=== PATIENT | female | born 1955 | race Caucasian/White ===

== ENCOUNTER 2023-11-07 23:55 | Emergency (ER) | payer MEDICARE, OTHER ==
[~2023-11-07] VITALS: Ht 172.7 cm; Wt 159.1 kg
[~2023-11-07 23:55] MED LIST: ACIPHEX20 MG PO; ANTIVERT 25MG25 MG PO; ATIVAN 1MG T1 MG/TAB PO; BETAPACE 120MG120 MG PO; BETAPACE 80MG80 MG PO; CALCIUM CITRAT200 M2 PO; CARDIZEM CD 12120 MG PO; CARDIZEM CD 18180 MG PO; CORDARONE200 MG/TAB PO; COUMADIN 1010 MG/TAB PO; COUMADIN 5MG5 MG/TAB PO; COUMADIN 77.5 MG/TAB PO; COZAAR 50MG50 MG/TAB PO; DESENEX TP; DOXYCYCLINE 10100 MG PO; ELIQUIS 5MG PO; FLEXERIL 1010 MG/TAB PO; FLONASEALLERGY NS; HCTZ12.5TAB PO; HYZAAR 50-12.1 UDTAB PO; Ketorolac 30 MG/ML VIAL IM ONE; LEVOXYL0.15 MG PO; LIPITOR 80MG80 MG PO; MULTAQ400 MG PO; NORCO 325 MG-51 TAB PO; PROVENTIL0.09 MG/A1 IH; ROBAXIN 50500 MG/TAB PO; SYNTHROID 0.10.15 MG PO; SYNTHROID0.05 MG/TA PO; SYNTHROID0.075 MG/T PO; SYNTHROID0.175 MG PO; TIAZAC180 MG PO; TIAZAC240 MG PO; TRIAM OI 15 0.025 TOP; TYLENOL 325MG325 MG PO; TYLENOL 500MG500 MG PO; TYLENOL 8 HR PO; VITAMIN C500 MG PO; VITAMIN D 50,1.25 MG PO; VITAMIN D31000 I1 PO; VOLTAREN GEL 1%1 TU TP; WELLBUTRIN XL150 MG PO; ZANTAC 150150 MG PO; ZOFRAN ODT4 MG PO; ZYRTEC 10MG10 MG PO
[2023-11-07 23:56] VITALS: TEMP 98.2
[2023-11-08] MEDS ORDERED: predniSONE 20 MG TAB PO ONE (00:45)
[2023-11-08 00:55] VITALS: BP 157/92; PULSE 86
== END 2023-11-08 00:55 | disposition home or self-care (01) ==
LOC: COL.ER 23:55
DX: M54.42 Lumbago with sciatica, left side (principal)
CPT/HCPCS: J1885; J2360; J7512